=== PATIENT | female | born 1985 | race African-American/Black ===

== ENCOUNTER 2016-05-09 04:09 | Emergency (ER) | payer OTHER ==
[~2016-05-09] VITALS: Ht 172.7 cm; Wt 90.3 kg
[~2016-05-09 04:09] MED LIST: APAP500 PO; NOHOMEMEDICATIONS; NORCO 5-325 TA1 EACH PO; PREDNISONE 20 M20 MG PO; VALIUM5 MG PO
[2016-05-09] MEDS ORDERED: HUMIRA10 MG/0.2 SQ (04:16)
[2016-05-09 04:56] LABS: ABSOLUTE NEUTROPHILS 5.7 thou/uL (1.4-8.2); BASOPHILS 0.7 % (0.0-2.0); EOSINOPHILS 3.7 % (0.0-3.0); HEMATOCRIT 34.9 % (37.0-47.0); HEMOGLOBIN 11.8 gm/dL (12.0-15.0); MCHC 33.9 % (28.0-37.0); MCV 85.5 fL (80.0-100.0); MONOCYTES 8.6 % (1.0-8.0); PLATELET COUNT 265 thou/uL (150-400); RBC 4.08 mil/uL (4.20-5.00); RDW 13.2 % (10.5-14.5); WBC 10.2 thou/uL (4.0-11.0)
[2016-05-09 04:57] LABS: MANUAL DIFF NO
[2016-05-09 05:02] LABS: URINE BILIRUBIN NEGATIVE (Negative); URINE BLOOD 2+ (Negative); URINE COLOR YELLOW; URINE GLUCOSE-RANDOM* NEGATIVE (Negative); URINE KETONES NEGATIVE (Negative); URINE LEUKOCYTES-REFLEX 1+ (Negative); URINE PROTEIN (DIPSTICK) NEGATIVE (Negative); URINE SPECIFIC GRAVITY 1.025 (1.003-1.035); URINE UROBILINOGEN 0.2 E.U./dl (0.2-1.0)
[2016-05-09 05:04] LABS: CREATININE 0.9 mg/dL (0.6-1.3); POTASSIUM 3.6 mmol/L (3.5-5.1)
[2016-05-09 06:16] LABS: CASTS None Seen /LPF (None Seen); CRYSTALS None Seen /LPF (None Seen); SQUAMOUS >10 Many /LPF (0-3)
[2016-05-09 06:17] LABS: URINE RBC 0-2 Rare /HPF (0-2); URINE WBC-REFLEX 0-5 Rare /HPF (0-5); YEAST-REFLEX Present (None Seen)
[2016-05-09] MEDS ORDERED: TORADOL 10 MG T10 MG PO (07:23)
[2016-05-09 07:50] VITALS: BP 124/70
== END 2016-05-09 07:50 | disposition home or self-care (01) ==
LOC: ER 04:09
PROVIDERS: Emergency Medicine
DX: M94.0 Chondrocostal junction syndrome [Tietze] (principal); M54.6 Pain in thoracic spine; R06.02 Shortness of breath; R51 Headache

== ENCOUNTER 2016-10-18 16:14 | Emergency (ER) | payer OTHER ==
[~2016-10-18] VITALS: Ht 172.7 cm; Wt 81.7 kg
--- NOTE | ~2016-10-18 | EKG ---
[address] [place] [address] ELECTROCARDIOGRAM REPORT Name: CLARITA GALVIN Room #: [facility]ENTERHansHans#: [id number] Admission: 10/18/16 Attend Phys: Discharge: Date of : 87 Report #: [id number] THIS REPORT FOR: //name// [facility] ED Test Date: 2016-10-18 Test Time: 16:44:32 Pat Name: CLARITA GALVIN Department: Room: Gender: F Co Chairman: SARTHAK : 1985 Requested By: Micheal Grijalva Order Number: [id number] MD: Marc Rangel Measurements Intervals [place] Rate: 58 P: 51 MS: 158 QRS: 78 QRSD: 85 T: 60 QT: 421 QTc: 414 Interpretive Statements Sinus rhythm ST elev, probable normal early repol pattern Compared to ECG 09/05/2012 22:25:04 ST (T wave) deviation now present Sinus bradycardia no longer present Electronically Signed On 10-18-2016 17:06:48 CDT by Marc Rangel [email or web address] <ELECTRONICALLY SIGNED> By: Marc Rangel MD 10/18/16 1706 43 43 Marc Rangel MD /LATASHA
[~2016-10-18 16:14] MED LIST changes: +HUMIRA10 MG/0.2 SQ; +TORADOL 10 MG T10 MG PO
[2016-10-18 16:38] LABS: URINE BILIRUBIN NEGATIVE (Negative); URINE BLOOD 2+ (Negative); URINE COLOR YELLOW; URINE GLUCOSE-RANDOM* NEGATIVE (Negative); URINE KETONES NEGATIVE (Negative); URINE LEUKOCYTES-REFLEX NEGATIVE (Negative); URINE PROTEIN (DIPSTICK) NEGATIVE (Negative); URINE UROBILINOGEN 0.2 E.U./dl (0.2-1.0)
[2016-10-18 16:47] LABS: CASTS None Seen /LPF (None Seen); CRYSTALS None Seen /LPF (None Seen); SQUAMOUS 0-3 Few /LPF (0-3); URINE RBC 3-10 Few /HPF (0-2); URINE WBC-REFLEX None Seen /HPF (0-5)
[2016-10-18 16:50] LABS: ABSOLUTE NEUTROPHILS 3.9 thou/uL (1.4-8.2); BASOPHILS 0.4 % (0.0-2.0); EOSINOPHILS 2.2 % (0.0-3.0); HEMATOCRIT 38.4 % (37.0-47.0); HEMOGLOBIN 12.6 gm/dL (12.0-15.0); LYMPHOCYTES 47.2 % (24.0-44.0); MCH 28.4 pg (26.0-34.0); MCHC 32.7 g/dL (28.0-37.0); MCV 86.9 fL (80.0-100.0); MONOCYTES 7.1 % (1.0-8.0); PLATELET COUNT 213 thou/uL (150-400); POLYS 43.1 % (36.0-66.0); RBC 4.42 mil/uL (4.20-5.00); RDW 13.6 % (10.5-14.5)
[2016-10-18 16:52] LABS: MANUAL DIFF NO
[2016-10-18 17:00] LABS: CREATININE 0.9 mg/dL (0.6-1.0); POTASSIUM 3.7 mmol/L (3.5-5.1)
[2016-10-18 17:04] LABS: ALBUMIN 3.8 g/dL (3.4-5.0); TOTAL BILIRUBIN 0.3 mg/dL (<0.1-1.0); TOTAL PROTEIN 8.2 g/dL (6.4-8.2)
[2016-10-18 17:31] VITALS: BP 111/59
== END 2016-10-18 17:39 | disposition home or self-care (01) ==
LOC: ER 16:14
PROVIDERS: Physician Assistant
DX: R06.02 Shortness of breath (principal); R00.2 Palpitations; H53.8 Other visual disturbances; R42 Dizziness and giddiness; T39.4X5A Adverse effect of antirheumatics, not elsewhere classified, initial encounter; Y92.89 Other specified places as the place of occurrence of the external cause